=== PATIENT | female | born 1955 | race Caucasian/White ===

== ENCOUNTER → 2017-07-20 | Outpatient (CLI) | payer OTHER ==
[~2017-07-20] MED LIST: ASCO100019 PO; AZEL23SP NAS; CALC625T PO; CHOL200024 PO; GELA600C PO; GINK120T3 PO; GLUC1TAB27 PO; MULT-717 PO; OMEG1CAP39 PO; UBID200C35 PO; VITA100C8 PO; VITA150T PO
[2017-07-20 14:40] LABS: BASOPHILS # (AUTO) 0.04 x10^3/uL (0-0.1); BASOPHILS % (AUTO) 1 % (0-1); EOSINOPHILS # (AUTO) 0.04 x10^3/uL (0-0.4); EOSINOPHILS % (AUTO) 1 % (1-7); LYMPHOCYTES % (AUTO) 30 % (22-44); MD NO; MEAN CORPUSCULAR HGB CONC 33.2 g/dL (32.4-35.8); MEAN CORPUSCULAR VOLUME 90.3 fL (80-100); MEAN PLATELET VOLUME 7.3 fL (7.4-10.4); MONOCYTES # (AUTO) 0.37 x10^3/uL (0.2-0.8); MONOCYTES % (AUTO) 5 % (2-9); NEUTROPHILS # (AUTO) 4.76 x10^3/uL (1.8-6.8); NEUTROPHILS % (AUTO) 64 % (42-75); PLATELET COUNT 370 x10^3/uL (130-400); RED BLOOD COUNT 4.47 x10^6/uL (3.82-5.3); RED CELL DISTRIBUTION WIDTH 13.6 % (9.6-15.2)
[2017-07-20 14:42] LABS: ALBUMIN 3.8 g/dL (3.4-5.0); ANION GAP 3 mmol/L (5-15); CALCIUM 9.3 mg/dL (8.5-10.1); CHLORIDE 109 mmol/L (98-107)
[2017-07-20 14:46] LABS: PROTHROMBIN TIME 10.4 Seconds (9.6-11.5)
[2017-07-20 14:47] LABS: ALANINE AMINOTRANSFERASE 18 U/L (12-78); ALKALINE PHOSPHATASE 72 U/L (45-117); BILIRUBIN,TOTAL 0.4 mg/dL (0.2-1.0); CREATININE 0.66 mg/dL (0.55-1.02); TOTAL PROTEIN 7.6 g/dL (6.4-8.2)
[2017-07-20 15:30] LABS: HEMOGLOBIN A1C 5.3 % (4.2-6.3)
== END | disposition home or self-care (01) ==
LOC: STAR 13:30
PROVIDERS: ATTEND Orthopaedic Surgery
DX: Z01.818 Encounter for other preprocedural examination (principal)
CPT/HCPCS: 36415; 80053; 83036; 85025; 85610; 85730; 87081; 93005

== ENCOUNTER 2017-07-24 07:43 | Inpatient (IN) | payer OTHER ==
[2017-07-20 13:59] VITALS: BP 131/82
[~2017-07-24] VITALS: Ht 172.7 cm; Wt 75.9 kg
[~2017-07-24 07:43] MED LIST changes: +EPINEPHRINE 1 MG/ML, 1ML ONE; +KETOROLAC 60 MG/2 ML ONE; +ROPIvacaine/PF 0.5%, 30 ML ONE; +SODIUM CHLORIDE 0.9% 100 ML ONE; +TRANEXAMIC ACID 100 MG/ML, 10ML ONE
[2017-07-24] MEDS ORDERED: VANCOMYCIN PER PHARMACY MC ONE (07:51)
[2017-07-24] MEDS ORDERED: LACTATED RINGERS 1,000 ML IV SCH (08:09)
[2017-07-24] MEDS ORDERED: GABAPENTIN 300 MG CAPSULE ONE ×2 (08:19→08:26)
[2017-07-24] MEDS ORDERED: ACETAMINOPHEN 500 MG TABLET ONE (08:19)
[2017-07-24] MEDS ORDERED: VANCOMYCIN 1,400 MG in SODIUM CHLORIDE 0.9% 250 ML IV ONE (08:30)
[2017-07-24] MEDS ORDERED: GABAPENTIN 300 MG CAPSULE PO ONE ×2 (08:30→09:00)
[2017-07-24] MEDS ORDERED: ACETAMINOPHEN 500 MG TABLET PO ONE ×2 (08:30→09:00)
[2017-07-24] MEDS ORDERED: MIDAZOLAM 1 MG/ML, 2ML ONE (09:20)
[2017-07-24] MEDS ORDERED: FENTANYL PF 100 MCG/2ML ONE (09:20)
[2017-07-24] MEDS: NS + 20MEQ KCL 1,000 ML IV SCH ×3 (09:24→21:54)
[2017-07-24] MEDS ORDERED: MAGNESIUM HYDROXIDE 8%, 30ML UDC PO PRN (09:30)
[2017-07-24] MEDS ORDERED: SCOPOLAMINE PATCH, 1.5MG PATCH.TD72 TD ONE (09:30)
[2017-07-24] MEDS ORDERED: SENNA/DOCUSATE TABLET PO PRN (09:30)
[2017-07-24] MEDS ORDERED: ACETAMINOPHEN 650 MG/20.3 ML UDC PO PRN (09:30)
[2017-07-24] MEDS ORDERED: BISACODYL 10 MG SUPP PR PRN (09:30)
[2017-07-24] MEDS ORDERED: ONDANSETRON 2MG/ML, 2ML IV PRN (09:30)
[2017-07-24] MEDS ORDERED: DIPHENHYDRAMINE 50 MG CAPSULE PO PRN (09:30)
[2017-07-24] MEDS ORDERED: ZOLPIDEM 5MG TABLET PO PRN (09:30)
[2017-07-24] MEDS ORDERED: CEFAZOLIN PMX 2GM/50ML 50 ML IVPB SCH (09:30)
[2017-07-24] MEDS ORDERED: ONDANSETRON 4 MG TABLET PO PRN (09:30)
[2017-07-24] MEDS ORDERED: PHENYLEPHRINE 10 MG/ML ONE (09:50)
[2017-07-24] MEDS ORDERED: ROCURONIUM 10 MG/ML,10ML ONE (09:50)
[2017-07-24] MEDS ORDERED: PROPOFOL 10 MG/ML, 20ML ONE (09:50)
[2017-07-24] MEDS ORDERED: NEOSTIGMINE 1 MG/ML, 10ML ONE (09:50)
[2017-07-24] MEDS ORDERED: EPHEDRINE 50 MG/ML, 1ML ONE (09:50)
[2017-07-24] MEDS ORDERED: DEXAMETHASONE 4 MG/ML, 1ML ONE (09:50)
[2017-07-24] MEDS ORDERED: GLYCOPYRROLATE 0.2MG/1ML, 5ML ONE (09:50)
[2017-07-24] MEDS ORDERED: ONDANSETRON 2MG/ML, 2ML ONE (09:50)
[2017-07-24] MEDS ORDERED: PROMETHAZINE 25 MG/ML, 1ML IV PRN (10:30)
[2017-07-24] MEDS ORDERED: METOPROLOL 1 MG/ML, 5ML IV PRN (10:30)
[2017-07-24] MEDS ORDERED: LORazepam 2 MG/ML, 1ML IVPush PRN (10:30)
[2017-07-24] MEDS ORDERED: HYDROmorphone 1 MG/ML, 1ML IV PRN (10:30)
[2017-07-24] MEDS ORDERED: OXYcodone 5 MG/5 ML ORAL.SOL UDC PO PRN (10:30)
[2017-07-24] MEDS ORDERED: FENTANYL PF 100 MCG/2ML IV PRN (10:30)
[2017-07-24] MEDS ORDERED: PROMETHAZINE 12.5 MG SUPP PR PRN (10:30)
[2017-07-24] MEDS ORDERED: ALBUTEROL SULFATE 2.5 MG/3 ML NPPB PRN (10:30)
[2017-07-24] MEDS ORDERED: hydrALAzine 20 MG/ML, 1ML IV PRN (10:30)
[2017-07-24] MEDS ORDERED: MEPERIDINE/PF 25MG/0.5ML IVPush PRN (10:30)
[2017-07-24] MEDS ORDERED: OXYcodone 5 MG/5 ML ORAL.SOL UDC ONE (11:54)
[2017-07-24 12:30] VITALS: BP 100/66
[2017-07-24] MEDS ORDERED: HYDROmorphone 2 MG/ML, 1ML ONE (12:38)
[2017-07-24] MEDS ORDERED: CEFAZOLIN 2,000 MG in DEXTROSE 5% 50 ML IVPB SCH (13:30)
[2017-07-24] MEDS ORDERED: SCOPOLAMINE PATCH, 1.5MG PATCH.TD72 TD PRN (14:30)
[2017-07-24] MEDS: ASPIRIN 81 MG TABLET EC PO SCH (18:11)
[2017-07-24] MEDS: OXYcodone IR 5MG TABLET PO PRN ×2 (18:14→22:15)
[2017-07-24] MEDS: CEFAZOLIN 2,000 MG in DEXTROSE 5% 50 ML IVPB SCH (18:26)
[2017-07-24 19:42] VITALS: BP 104/50
[2017-07-24] MEDS: DOCUSATE 100 MG CAPSULE PO SCH (21:09)
[2017-07-24 23:51] VITALS: BP 96/51
[2017-07-25] MEDS: CEFAZOLIN 2,000 MG in DEXTROSE 5% 50 ML IVPB SCH (02:06)
[2017-07-25 02:08] VITALS: BP 95/51
[2017-07-25] MEDS ORDERED: SODIUM CHLORIDE 0.9% 1,000ML IVBOLUS ONE (04:30)
[2017-07-25] MEDS ORDERED: DEXAMETHASONE 4 MG/ML, 1ML IVPush SCH (06:00)
[2017-07-25 06:15] VITALS: BP 99/50
[2017-07-25] MEDS: ASPIRIN 81 MG TABLET EC PO SCH (06:20)
[2017-07-25 06:30] VITALS: BP 87/46
[2017-07-25 07:35] VITALS: BP 100/53
[2017-07-25] MEDS: DOCUSATE 100 MG CAPSULE PO SCH (08:58)
[2017-07-25] MEDS: HYDROcodone/APAP 5/325 TABLET PO PRN ×2 (08:58→13:14)
[2017-07-25 12:28] VITALS: BP 113/52
[2017-07-25] MEDS ORDERED: OXYC5CAP2 PO (13:40)
[2017-07-25] MEDS ORDERED: TRAM50TA2 PO (13:41)
[2017-07-25] MEDS ORDERED: MELO7.5T31 PO (13:42)
[2017-07-25] MEDS ORDERED: ONDA4TAB10 PO (13:42)
[2017-07-25 15:09] VITALS: BP 118/73
== END 2017-07-25 15:34 | disposition home or self-care (01) | DRG 470 ==
LOC: ORIP 07:43 → 4NOR 12:22
PROVIDERS: ADMIT Orthopaedic Surgery; ATTEND Orthopaedic Surgery
PROC: 0SRB0JA Replacement of Left Hip Joint with Synthetic Substitute, Uncemented, Open Approach (ICD-10-PCS; principal; 2017-07-24 09:30)
DX: M16.12 Unilateral primary osteoarthritis, left hip (principal); M54.10 Radiculopathy, site unspecified
CPT/HCPCS: 36415; 72170; 76001; 85014; 85018; 86850; 86900; 88300; C1713; J0171; J0690; J1100; J1170; J1885; J2250; J2405; J2704; J2710; J2795; J3010; J3370; J3480; J3490; C1776; J2370; J7030; J7050; J7120